=== PATIENT | male | born 1970 | race Caucasian/White ===

== ENCOUNTER → 2020-11-07 | Outpatient (CLI) | payer BC, OTHER ==
[~2020-11-07] MED LIST: COQ1050 MG PO; CRESTOR5 MG PO; CYCLOBENZAPRINE10 MG PO; FAMOTIDINE20 MG PO; FLUTICASONE; LUTEIN40 MG PO; NAPROXEN500 MG PO; SERTRALINE HCL100 MG PO; TESTOSTERO200 MG/1 M IM; TOPROL XL25 MG PO; ZYRTEC10 MG PO
== END ==
LOC: KOH-I 15:37
DX: M25.512 Pain in left shoulder (principal); M48.061 Spinal stenosis, lumbar region without neurogenic claudication; M48.07 Spinal stenosis, lumbosacral region; M51.27 Other intervertebral disc displacement, lumbosacral region; M51.26 Other intervertebral disc displacement, lumbar region; G95.29 Other cord compression
CPT/HCPCS: 72148

== ENCOUNTER → 2021-06-11 | Outpatient (CLI) | payer OTHER, BC | LOC: KOH-I 12:53 | DX: M79.672 Pain in left foot (principal); S92.515A Nondisplaced fracture of proximal phalanx of left lesser toe(s), initial encounter for closed fracture; V89.2XXA Person injured in unspecified motor-vehicle accident, traffic, initial encounter | CPT/HCPCS: 73070; 73562; 73620 ==

== ENCOUNTER → 2021-06-17 | Outpatient (CLI) | payer BC | LOC: KOH-I 11:49 | DX: R07.9 Chest pain, unspecified (principal) | CPT/HCPCS: 71046 ==

== ENCOUNTER → 2022-05-07 | Outpatient (CLI) | payer BC | LOC: KOH-I 08:56 | DX: R06.02 Shortness of breath (principal) | CPT/HCPCS: 71046 ==